=== PATIENT | male | born 1975 | race Asian ===

== ENCOUNTER 2021-04-12 09:52 | Emergency (ER) | payer OTHER ==
[2021-04-12 09:55] VITALS: BP 138/86; PULSE 67; RESP 18; TEMP 97.7
[2021-04-12] MEDS ORDERED: IBUPROFEN 600 MG TAB PO STA (10:11)
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
--- NOTE | 2021-04-12 10:55 | XR ---
EXAMINATION TYPE: XR ribs LT w pa chest xray DATE OF EXAM: 04/12/2021 COMPARISON: None HISTORY: Fall on metal flowerpot, pain TECHNIQUE: AP chest with two-view left RIBS FINDINGS: Heart size normal. Pulmonary vasculature is normal. Lungs are clear. No pneumothorax is sarah dent. No displaced rib fractures are identified. IMPRESSION: 1. Normal two-view left RIBS
[2021-04-12] MEDS ORDERED: ACET/COD 300 MG/30 MG STARTER PACK 6 TAB BTL PO STA (11:05)
== END 2021-04-12 11:17 | disposition home or self-care (01) ==
LOC: EC 09:52
DX: S22.32XA Fracture of one rib, left side, initial encounter for closed fracture (principal); W01.0XXA Fall on same level from slipping, tripping and stumbling without subsequent striking against object, initial encounter
CPT/HCPCS: 99284

== ENCOUNTER 2022-02-02 13:48 | Emergency (ER) | payer OTHER ==
[2022-02-02 14:12] VITALS: BP 127/83; PULSE 69; RESP 20; TEMP 97.7
--- NOTE | 2022-02-02 14:22 | ED ---
General Adult HPI - General Chief complaint: Recheck/Abnormal Lab/Rx Stated complaint: Needle Stick [facility] Time Seen by Provider: 02/02/22 14:15 Source: patient, RN notes reviewed, old records reviewed Mode of arrival: ambulatory Limitations: no limitations - History of Present Illness Initial comments: This is a well-appearing 46-year-old male who presents to the emergency room after a suture needle penetrated the glove on his right index finger in the operating room this morning. He states it did not bleed. He did wash his hands immediately afterwards. The surgical patient is a known hepatitis C patient. Patient is here at the request of his agency appointments supervisor for evaluation. -: hour(s) (4) Location: right, upper extremity (index finger) Severity scale (1-10): 0 Associated Symptoms: denies other symptoms Treatments Prior to Arrival: none - Related Data Home Medications Medication Instructions Recorded Confirmed No Known Home Medications 04/12/21 04/12/21 Allergies Allergy/AdvReac Type Severity Reaction Status Date / Time No Known Allergies Allergy Verified 02/02/22 14:12 Review of Systems ROS Statement: Those systems with pertinent positive or pertinent negative responses have been documented in the HPI. ROS Other: All systems not noted in ROS Statement are negative. Past Medical History Past Medical History: No Reported History History of Any Multi-Drug Resistant Organisms: None Reported Additional Past Surgical History / Comment(s): left nephrectomy Past Psychological History: No Psychological Hx Reported Smoking Status: Never smoker Past Alcohol Use History: None Reported Past Drug Use History: None Reported General Exam Limitations: no limitations General appearance: alert, in no apparent distress ENT exam: Present: normal exam, normal oropharynx, mucous membranes moist Neck exam: Absent: tenderness, meningismus Respiratory exam: Present: normal lung sounds bilaterally. Absent: respiratory distress, accessory muscle use Cardiovascular Exam: Present: regular rate Extremities exam: Present: other (Right index finger with no evidence of puncture wound or erythema) Neurological exam: Present: alert, oriented X3 Psychiatric exam: Present: normal affect, normal mood Skin exam: Present: warm, dry, normal color. Absent: cyanosis, diaphoretic Course Vital Signs 02/02/22 14:10 Temperature 97.7 F Pulse Rate 69 Respiratory 20 Rate Blood Pressure 127/83 O2 Sat by Pulse 99 Oximetry Medical Decision Making - Medical Decision Making Patient was offered HIV prophylaxis and declined. There is no prophylaxis regimen that has shown any benefit for hepatitis C. Labs were sent on the patient and he states labs were also sent on the source patient. There is no evidence of puncture wound to the right index finger. Patient states that there was no bleeding noted at the time of the puncture through his glove. He was discharged to follow up with occupational health. Patient is agreeable to this plan of care. Case discussed with Disposition Clinical Impression: Needlestick injury accident Disposition: HOME SELF-CARE Condition: Good Instructions (If sedation given, give patient instructions): Body Substance Exposure (ED) Additional Instructions: Follow-up with occupational health this week. Please keep in mind that if you wish to be treated prophylactically against HIV, the regimen should be started as soon as possible after exposure. Return to the emergency room with any new or concerning symptoms Is patient prescribed a controlled substance at d/c from ED?: No Referrals: Nonstaff,Physician [REFERRING] - 1-2 days Time of Disposition: 14:35
== END 2022-02-02 14:44 | disposition home or self-care (01) ==
LOC: EC 13:48
DX: B19.20 Unspecified viral hepatitis C without hepatic coma (principal); W46.1XXA Contact with contaminated hypodermic needle, initial encounter

== ENCOUNTER → 2023-11-02 | Outpatient (CLI) | payer OTHER ==
--- NOTE | 2023-11-02 13:51 | XR ---
EXAMINATION TYPE: XR chest 2V DATE OF EXAM: 11/02/2023 1:44 PM CLINICAL INDICATION:Male, 48 years old with history of R05 chronic cough; [facility] COMPARISON: Chest radiographs from 04/12/2021 TECHNIQUE: XR chest 2V Frontal and lateral views of the chest. FINDINGS: Lungs/Pleura: There is no evidence of pleural effusion, focal consolidation, or pneumothorax. Pulmonary vascularity: Unremarkable. Heart/mediastinum: Cardiomediastinal silhouette is unremarkable. Musculoskeletal: No acute osseous pathology. IMPRESSION: No acute cardiopulmonary disease/process.
== END | disposition home or self-care (01) ==
LOC: RADXRMAIN 13:35
PROVIDERS: ATTEND Thoracic Surgery (Cardiothoracic Vascular Surgery)
DX: R05.3 Chronic cough (principal)
CPT/HCPCS: 71046